=== PATIENT | female | born 1960 | race Caucasian/White ===

== ENCOUNTER → 2020-02-19 | Outpatient (CLI) | payer OTHER ==
--- NOTE | 2020-02-19 14:56 | Diagnostic Imaging Report ---
INDICATION: Shoulder pain. Weakness. COMPARISON: None. FINDINGS: Three views of the left shoulder were obtained. There is no fracture, dislocation, or other acute bony abnormality identified. The soft tissues appear unremarkable. No radiopaque foreign bodies identified. The visualized portions of the left lung are clear. IMPRESSION: No acute fractures or dislocations of the left shoulder. Dictated by: Dictated on workstation # [id number]
== END ==
LOC: RAD 13:56
PROVIDERS: ATTEND Surgery
DX: M25.512 Pain in left shoulder (principal); R53.1 Weakness
CPT/HCPCS: 73030

== ENCOUNTER → 2020-05-11 | Outpatient (CLI) | payer OTHER | LOC: RAD 13:00 | PROVIDERS: ATTEND Nurse Practitioner Family | DX: Z12.31 Encounter for screening mammogram for malignant neoplasm of breast (principal) | CPT/HCPCS: 77063; 77067 ==

== ENCOUNTER → 2020-05-25 | Outpatient (CLI) | payer OTHER ==
--- NOTE | 2020-05-25 16:23 | Diagnostic Imaging Report ---
INDICATION: Left chest wall mass. TECHNIQUE: Sonographic interrogation of the area of palpable abnormality in the left chest wall was performed. FINDINGS: There is a smoothly marginated homogeneous solid-appearing mass measuring 6.6 x 6.8 x 2.7 cm. This has the appearance sonographically of a lipoma. No significant internal vascularity is seen. IMPRESSION: Probable lipoma in the left chest wall at the area of palpable abnormality. Continued clinical followup to confirm stability is recommended. Dictated by: Dictated on workstation # [id number]
== END ==
LOC: RAD 13:10
PROVIDERS: ATTEND Family Medicine
DX: R22.2 Localized swelling, mass and lump, trunk (principal)
CPT/HCPCS: 76642

== ENCOUNTER 2020-06-07 05:28 | Outpatient (RCR) | payer OTHER ==
[~2020-06-07] VITALS: Ht 167.6 cm; Wt 123.0 kg
[~2020-06-07 05:28] MED LIST: LEVO100C4 PO
[2020-06-09] MEDS ORDERED: PANT40TA2 PO (12:46)
[2020-06-09] MEDS ORDERED: SUCR1TAB36 PO (14:11)
== END 2020-06-08 09:32 | disposition home or self-care (01) ==
LOC: PREOP 05:28
PROVIDERS: ATTEND Surgery
DX: Z01.812 Encounter for preprocedural laboratory examination (principal); K92.1 Melena; R10.31 Right lower quadrant pain; R13.10 Dysphagia, unspecified; Z20.822 Contact with and (suspected) exposure to COVID-19
CPT/HCPCS: 87635

== ENCOUNTER 2020-06-09 11:40 | Day surgery (SDC) | payer OTHER ==
[~2020-06-09] VITALS: Ht 167.6 cm; Wt 123.0 kg
[~2020-06-09 11:40] MED LIST changes: +LACTATED RINGERS 1,000 ML IV ONE
[2020-06-09] MEDS ORDERED: LACTATED RINGERS 1,000 ML IV STA (11:48)
[2020-06-09] MEDS ORDERED: HURRICAINE EXT TUBE (BENZOCAINE) XX PRN (12:00)
[2020-06-09] MEDS ORDERED: LIDOCAINE JELLY 2% 6 ML SYRINGE MM PRN (12:00)
[2020-06-09] MEDS ORDERED: LIDOCAINE JELLY 2% 6 ML SYRINGE ONE (12:11)
[2020-06-09] MEDS ORDERED: PROPOFOL INJECTION 50 ML IV ONE ×2 (12:25→13:05)
[2020-06-09] MEDS ORDERED: MIDAZOLAM 2 MG/2 ML (VERSED) VIAL ONE (12:26)
[2020-06-09] MEDS ORDERED: ONDANSETRON 4 MG/2 ML (SDV) Z0FRAN IVP PRN (12:45)
[2020-06-09] MEDS ORDERED: ACETAMINOPHEN 325 MG TABLET PO PRN (12:45)
[2020-06-09] MEDS ORDERED: morphine INJ 10 MG/ML 1ML (SYR OR VIAL) IVP PRN ×2 (12:45)
--- NOTE | 2020-06-09 12:45 | Progress Note-Pre Operative ---
Pre-Operative Progress Note H&P Reviewed The H&P was reviewed, patient examined and no changes noted. Date Seen by Provider: Jun 09, 2020 Time Seen by Provider: 12:00 Date H&P Reviewed: Jun 09, 2020 Time H&P Reviewed: 12:00 Pre-Operative Diagnosis: GERD, dysphagia, screening ADELA RAMIREZ MD Jun 09, 2020 12:45
[2020-06-09] MEDS ORDERED: PANT40TA2 PO (12:46)
--- NOTE | 2020-06-09 12:47 | Discharge Inst-Surgical ---
D/C Lap Instructions-KIDO New, Converted, or Re-Newed RX: RX on Chart Follow Up Activity as tolerated High Fiber Diet 25g or more per day Avoid Alcohol, Caffeine, Spicy [place] and Acid foods. Drink 64 fluid oz or more of fluids per day. Symptoms to Report: Fever over 101 degree F, Nausea/Vomiting If any problems/questions: Contact your physician or go to Emergency Room ADELA RAMIREZ MD Jun 09, 2020 12:47
[2020-06-09 13:35] VITALS: BP 112/56
--- NOTE | 2020-06-09 13:35 | Anesthesia-General Post-Op ---
MAC Patient Condition Mental Status/LOC: Same as Preop Cardiovascular: Satisfactory Nausea/Vomiting: Absent Respiratory: Satisfactory Pain: Controlled Complications: Absent Post Op Complications Complications None Follow Up Care/Instructions Patient Instructions None needed. Anesthesiology Discharge Order Discharge Order Patient is doing well, no complaints, stable vital signs, no apparent adverse anesthesia problems. No complications reported per nursing. JEFE WALKER CRNA Jun 09, 2020 13:35
[2020-06-09 13:40] VITALS: BP 111/57
[2020-06-09 13:45] VITALS: BP 125/76
[2020-06-09 13:50] VITALS: BP 114/68
[2020-06-09] MEDS ORDERED: SUCR1TAB36 PO (14:11)
[2020-06-09 14:20] VITALS: BP 143/79
[2020-06-09 14:35] VITALS: BP 143/79
--- NOTE | 2020-06-09 14:51 | Progress Note-Post Operative ---
Post-Operative Progess Note Surgeon (s)/Hop Farmer (s) Surgeon ADELA RAMIREZ MD Hop Farmer: none Pre-Operative Diagnosis GERD, dysphagia, screening Post-Operative Diagnosis reflux esophagitis(stage 3) with esophageal ulceration and mild distal esophageal stricture, small HH(2.5cm), moderate gastritis. mild chronic stage 2 ext and int hemorrhoids. Procedure & Operative Findings Date of Procedure 06/09/20 Procedure Performed/Findings EGD with bx and balloon dilatation. colonoscopy Anesthesia Type mac Estimated Blood Loss Estimated blood loss (mL): minimal Specimens/Packing Specimens Removed ge jxn, antrum ADELA RAMIREZ MD Jun 09, 2020 14:51
--- NOTE | 2020-06-09 18:30 | OPERATIVE REPORT ---
DATE OF SERVICE: 06/09/2020 ATTENDING PRIMARY CARE PHYSICIAN: Kita Gonzales MD PREOPERATIVE DIAGNOSES: Gastroesophageal reflux disease, dysphagia, right lower abdominal quadrant pain. POSTOPERATIVE DIAGNOSES: Reflux esophagitis stage III with esophageal ulceration and mild distal esophageal stricture, small to moderate size hiatal hernia approximately 2.5 cm in size, moderate gastritis. No distal obstructions. Chronic stage II external and internal hemorrhoids. PROCEDURE: EGD with biopsy and balloon dilatation and colonoscopy. SURGEON: Adela Ramirez MD ANESTHESIA: Monitored anesthesia care. ESTIMATED BLOOD LOSS: Minimal. FINDINGS: Same as postoperative diagnoses. DISPOSITION: The patient tolerated the procedure well. INDICATIONS: The patient is a 60-year-old female who has had issues with gastroesophageal reflux disease; however, this has progressed to dysphagia. She states that she feels substernal pressure sensation after food bolus and then would regurgitate frequently. She also has had pain in the right lower abdominal quadrant on an intermittent basis, which is not new. Her last colonoscopy was in 2012. She does not report any red blood per rectum nor any dark tarry stools and also does not report any family history of colon cancer. DESCRIPTION OF PROCEDURE: The patient was brought to the endoscopy suite, laid in the left lateral decubitus position with the head slightly elevated. After adequate IV pain and sedative medications and monitored anesthesia care, the mouthpiece was applied. The endoscope was placed in the mouth, visualizing the pharynx and hypopharyngeal region. Vocal cords, epiglottis and vallecula identified and appeared to be normal. The endoscope was then gently intubated into the esophageal opening and esophagus insufflated. The endoscope was then advanced through the first, second and third portion of esophagus at the level of the distal esophagus where small esophageal ulcerations with overlying fibrin clot, no active bleeding. A reflux esophagitis stage III was also identified. There was also a mild distal esophageal stricture. A biopsy was taken of the GE junction with forceps with visualization of good hemostasis. The endoscope was then advanced into the stomach and endoscope retroflexed, visualizing a small to moderate size hiatal hernia approximately 2.5 cm in size. There was a moderate severity gastritis. No formal ulcerations, polyps, or any neoplasms. A biopsy was taken of the antrum to rule out H. pylori with visualization of good hemostasis. The endoscope was then advanced to the pylorus and the first and second portion of the duodenum, which appeared normal with no distal obstructions. We then proceeded with balloon dilatation of the distal esophageal stricture and the balloon was placed in the stomach and pulled back to the area of the stricture. The balloon was then insufflated to 2, then 4, then 6 atmospheres of pressure or 20 mm in luminal diameter with moderate resistance and left this in place for approximately 60 seconds. The balloon was then desufflated and removed with visualization of good hemostasis as well as no mucosal tears. The endoscope was then slowly withdrawn while taking a second look and suctioning of residual air with no additional findings. We then proceeded with colonoscopy portion of the procedure and a digital rectal examination was performed, which revealed chronic stage II external and internal hemorrhoids, not actively edematous nor inflamed and no bleeding. Normal sphincter tone was felt and there were no palpable masses. The endoscope was then intubated and anus and rectum gently insufflated. The endoscope was then advanced through the valves of Velarde of the rectum with no polyps or any neoplasms identified. The endoscope was then advanced through the sigmoid colon where no diverticulosis identified. Endoscope was then advanced to the remainder of the descending, transverse and ascending colon to the cecum. These segments were normal. There were no neoplasms as well as no mucosal inflammatory changes. The endoscope was then slowly withdrawn while taking a second look and suctioning of residual air with no additional findings. The patient tolerated the procedure well. We will recommend the necessary lifestyle and diet accommodation including small and more frequent meals, avoidance of eating at night as well as head elevation while lying supine. She also needs to avoid caffeinated beverages, spicy, greasy and acidic foods. Any type of modality of regularly scheduled diet and exercise and weight loss will also help with her reflux type of symptoms. She states that she has had some form of allergic reactions to acid reducers; however, we are not sure exactly what the reactions or what medications she had a reaction to. For now, we will start her on Carafate 1 gram q.i.d. for the next 2 weeks, then on a p.r.n. basis. From a standpoint of her colon and the intermittent episodes of right lower abdominal quadrant pain, this may be due to constipation. We will recommend the incorporation of high-fiber diet with at least 25 grams of fiber daily as well as significant amounts of water to promote soft stools on a daily basis. Job ID: [id number] DocumentID: [id number] Dictated Date: 06/09/2020 13:44:00 Inventory And Pricing Associate Date: 06/09/2020 18:29:58 Dictated By: ADELA RAMIREZ MD
== END 2020-06-09 14:35 | disposition home or self-care (01) ==
LOC: ENDO 11:40
PROVIDERS: ATTEND Surgery
DX: K29.50 Unspecified chronic gastritis without bleeding (principal); K21.00 Gastro-esophageal reflux disease with esophagitis, without bleeding; K22.2 Esophageal obstruction; K44.9 Diaphragmatic hernia without obstruction or gangrene; K64.1 Second degree hemorrhoids; K22.10 Ulcer of esophagus without bleeding; E66.01 Morbid (severe) obesity due to excess calories; Z68.41 Body mass index [BMI] 40.0-44.9, adult; Z79.899 Other long term (current) drug therapy; Z88.8 Allergy status to other drugs, medicaments and biological substances; Z90.710 Acquired absence of both cervix and uterus; Z87.891 Personal history of nicotine dependence; Z83.3 Family history of diabetes mellitus; Z80.3 Family history of malignant neoplasm of breast
CPT/HCPCS: 88305

== ENCOUNTER 2020-06-21 05:35 | Outpatient (CLI) | payer OTHER ==
[~2020-06-21] VITALS: Ht 167.7 cm; Wt 123.0 kg
[~2020-06-21 05:35] MED LIST changes: -LACTATED RINGERS 1,000 ML IV ONE; +PANT40TA2 PO; +SUCR1TAB36 PO
== END 2020-06-21 16:43 | disposition home or self-care (01) ==
LOC: PREOP 05:35
PROVIDERS: ATTEND Surgery
DX: Z01.818 Encounter for other preprocedural examination (principal)

== ENCOUNTER 2020-06-24 13:46 | Day surgery (SDC) | payer OTHER ==
[2020-06-24] VITALS (9 sets, daily range): BP systolic 142–158; BP diastolic 63–80
[~2020-06-24] VITALS: Ht 167 cm; Wt 123.0 kg
[~2020-06-24 13:46] MED LIST changes: +LIDOCAINE/EPI 1%-1:200,000 (XYLOCAINE) 10 ML VIAL ONE
[2020-06-24] MEDS ORDERED: LACTATED RINGERS 1,000 ML IV PRN (14:00)
[2020-06-24] MEDS ORDERED: ceFAZolin 2 GM IV Premixed 50 ML IV ONE (14:00)
--- NOTE | 2020-06-24 14:25 | Progress Note-Pre Operative ---
Pre-Operative Progress Note H&P Reviewed The H&P was reviewed, patient examined and no changes noted. Date Seen by Provider: June 24, 2020 Time Seen by Provider: 14:20 Date H&P Reviewed: June 24, 2020 Time H&P Reviewed: 14:15 Pre-Operative Diagnosis: Symptomatic lipoma left upper breast GONSALO MCGARRY APRN June 24, 2020 14:25
[2020-06-24] MEDS ORDERED: ACHD5005 PO (14:27)
--- NOTE | 2020-06-24 14:27 | Discharge Inst-Surgical ---
D/C Lap Instructions-KIDO Reconcile Patient Problems Problems Reviewed?: Yes New, Converted, or Re-Newed RX: RX on Chart Follow Up Appt in 2 weeks Activity as tolerated No driving for 24 hours No driving while on pain medications Incentive Spirometry use every 2 hours while awake Regular Diet Symptoms to Report: Fever over 101 degree F, Nausea/Vomiting Infection Signs and Symptoms to report: Increased redness, Foul odor of wound, Increased drainage Bathing instructions: May shower Operative Area Clean/Dry; Keep incision clean/dry If any problems/questions: Contact your physician or go to Emergency Room GONSALO MCGARRY APRN June 24, 2020 14:27
[2020-06-24] MEDS ORDERED: HYDROcodone/APAP 5 MG/325 MG (LORTAB) TAB PO ONE (14:30)
[2020-06-24] MEDS ORDERED: ONDANSETRON 4 MG/2 ML (SDV) Z0FRAN IVP PRN (14:30)
[2020-06-24] MEDS ORDERED: morphine INJ 10 MG/ML 1ML (SYR OR VIAL) IVP PRN (14:30)
[2020-06-24] MEDS ORDERED: ACETAMINOPHEN 325 MG TABLET PO PRN (14:30)
[2020-06-24] MEDS ORDERED: ONDANSETRON 4 MG/2 ML (SDV) Z0FRAN ONE ×2 (15:34→16:27)
[2020-06-24] MEDS ORDERED: proPOfol 200 MG/20 ML (DIPRIVAN) VIAL IV ONE (15:34)
[2020-06-24] MEDS ORDERED: LIDOCAINE PF 2% 5 ML (XYLOCAINE) VIAL ONE (15:34)
[2020-06-24] MEDS ORDERED: MIDAZOLAM 2 MG/2 ML (VERSED) VIAL ONE (16:12)
[2020-06-24] MEDS ORDERED: fentaNYL INJ 100 MCG/2 ML AMP ONE (16:26)
[2020-06-24] MEDS ORDERED: PROPOFOL INJECTION 50 ML IV ONE (16:27)
--- NOTE | 2020-06-24 16:42 | Progress Note-Post Operative ---
Post-Operative Progess Note Surgeon (s)/Bicycle I Assembler (s) Surgeon ADELA RAMIREZ MD Bicycle I Assembler: irina allen APRN Pre-Operative Diagnosis Symptomatic lipoma left upper breast Post-Operative Diagnosis subfascial left breast lipoma 9x9cm Procedure & Operative Findings Date of Procedure 06/24/20 Procedure Performed/Findings excision subfascial lipoma left breast 9x9cm with intermediate flap closure. Anesthesia Type general LMA with local Estimated Blood Loss Estimated blood loss (mL): minimal Specimens/Packing Specimens Removed left breast lipoma ADELA RAMIREZ MD June 24, 2020 16:42
[2020-06-24] MEDS ORDERED: SEVOFLURANE (ULTANE) 15 ML INHAL SOLN ONE (16:51)
--- NOTE | 2020-06-24 22:05 | OPERATIVE REPORT ---
DATE OF SERVICE: 06/24/2020 ATTENDING PRIMARY CARE PHYSICIAN: Dr. Kita Gonzales. PREOPERATIVE DIAGNOSES: Symptomatic lipoma, left breast and chest confirmed by mammography as well as ultrasound. POSTOPERATIVE DIAGNOSES: Symptomatic lipoma, left breast and chest confirmed by mammography as well as ultrasound with the excised measurements, 9 x 9 cm. PROCEDURE: Excision subfascial lipoma, 9 x 9 cm in size. SURGEON: Adela Ramirez MD. BRIDAL STYLIST SALES CONSULTANT: Kenton Castillo APRN. ANESTHESIA: General laryngeal mask airway with local. ESTIMATED BLOOD LOSS: Minimal. FINDINGS: Well circumscribed fatty tissue consistent with a benign lipoma. DISPOSITION: The patient tolerated the procedure well. INDICATIONS: The patient is a 60-year-old female who states that she noticed a lump in the left upper outer portion of her breast as well as chest wall, which grew larger in size over 5 to 6 years. Over time, this lesion has become significantly painful, especially upon certain motions of her left upper extremity. She does not report any redness or swelling as well as no drainage. She has had multiple mammographies as well as ultrasounds in the past, which were all consistent with a benign lipoma. DESCRIPTION OF PROCEDURE: The patient was brought to the operating room, laid supine on the table. After adequate IV pain and sedative medications and general laryngeal mask airway intubation, the chest and neck were prepped and draped in standard surgical fashion. A 0.5% Marcaine with epinephrine was then used to anesthetize overlying skin. A skin incision along the glebellar lines was then made using a 15 blade. The subcutaneous tissue was then dissected down as was the fascia. The lipoma was then identified, which was well circumscribed and subfascial. This was then completely dissected out using blunt dissection as well as electrocautery with visualization of good hemostasis. The excised diameter was 9 x 9 cm. Good hemostasis was observed, and the fascia was then reapproximated using 3-0 Vicryl interrupted sutures. Subcutaneous tissue was then reapproximated with the same suture and the skin was closed using 4-0 Monocryl running subcuticular suture. Wound was then cleaned and covered with Dermabond. The patient tolerated the procedure well. We will start IV normal pain medication as well as a clear liquid diet. When she is tolerating clears, has good pain control with oral pain medications, ambulating well, we will discharge her home. She will be instructed to wear supportive garments to the region for the next two weeks as well. Job ID: [id number] DocumentID: [id number] Dictated Date: 06/24/2020 16:46:51 Sinker Puller Date: 06/24/2020 22:04:28 Dictated By: ADELA RAMIREZ MD MTDD
--- NOTE | 2020-07-05 11:40 | Anesthesia-General Post-Op ---
General Significant Intra-Op Events Notes post date entry from 06-24-20 at 1730 Patient Condition Mental Status/LOC: Same as Preop Cardiovascular: Satisfactory Nausea/Vomiting: Absent Respiratory: Satisfactory Pain: Controlled Complications: Absent Post Op Complications Complications None Follow Up Care/Instructions Patient Instructions None needed. Anesthesia/Patient Condition Patient Condition Patient is doing well, no complaints, stable vital signs, no apparent adverse anesthesia problems. No complications reported per nursing. LARRY LARSEN CRNA July 05, 2020 11:40
== END 2020-06-24 18:30 | disposition home or self-care (01) ==
LOC: SDC 13:46
PROVIDERS: ATTEND Surgery
DX: D17.79 Benign lipomatous neoplasm of other sites (principal); E03.9 Hypothyroidism, unspecified; K21.9 Gastro-esophageal reflux disease without esophagitis; Z79.899 Other long term (current) drug therapy; Z79.890 Hormone replacement therapy; Z87.891 Personal history of nicotine dependence
CPT/HCPCS: 87081; 88304

== ENCOUNTER → 2021-06-01 | Outpatient (CLI) | payer OTHER ==
[~2021-06-01] MED LIST changes: +ACHD5005 PO; -LIDOCAINE/EPI 1%-1:200,000 (XYLOCAINE) 10 ML VIAL ONE
--- NOTE | 2021-06-02 12:20 | Diagnostic Imaging Report ---
INDICATION: Routine screening. Comparison is made with prior mammogram from 05/11/2020 and 05/21/2018. 2-D and 3-D bilateral screening mammography was performed with CAD. CAD is utilized. The current study was also evaluated with a Computer Aided Detection (CAD) system. Scattered fibroglandular densities are identified bilaterally. The parenchymal pattern is stable. No mass or malignant-appearing microcalcifications are seen. Axillae are unremarkable. IMPRESSION: BI-RADS Category 1 No mammographic features suspicious for malignancy are identified. ACR BI-RADS Category 1: Negative. Result letter will be mailed to the patient. Note: At least 10% of breast cancer is not imaged by mammography. Dictated by: Dictated on workstation # [id number]
== END ==
LOC: RAD 15:15
PROVIDERS: ATTEND Nurse Practitioner Family
DX: Z12.31 Encounter for screening mammogram for malignant neoplasm of breast (principal)
CPT/HCPCS: 77063; 77067

== ENCOUNTER 2022-02-11 08:09 | Emergency (ER) | payer BC ==
[~2022-02-11] VITALS: Ht 167 cm; Wt 110.0 kg
[2022-02-11 08:15] VITALS: BP 160/95
--- NOTE | 2022-02-11 09:08 | ED Hip Pain/Injury ---
General Chief Complaint: Hip/Pelvic Problems Stated Complaint: L HIP PAIN Nursing Triage Note: TO ROOM 06 WITH COMPLAINTS OF LEFT HIP PAIN THAT RADIATES DOWN LEG STARTING ON SUNDAY. Source: patient Exam Limitations: no limitations (OBI RIVERA) History of Present Illness Date Seen by Provider: Feb 11, 2022 Time Seen by Provider: 08:44 Initial Comments Patient is a 61yo F who presents with left hip pain since [id number]. PMHx includes hypothyroidism, arthritis, and "deteriorating spinal disk". Patient initially felt a pop in her left hip 2 weeks ago then had pain starting at 5/10 progressing to 10/10 pain today which is dull and aching. Patient is normally independent in ambulation and works at [employer]. Pain has caused her to be limited in ambulation, requiring her daughter to help her out of bed this morning and assistance with ambulation from vehicle to ED room this morning. Patient endorses weakness and numbness of her left leg that extends down to the left foot. Pain is stabilized when patient is at rest and not moving her thigh. Has not taken any medications for pain today. Denies recent falls or trauma lower extremities, also no previous surgical history or traumatic events to the lower extremity. Endorses low back pain localized to the left side. Denies bowel incontinence, urinary incontinence, or groin numbness. Timing/Duration: getting worse (Worsening L Hip pain since feeling a pop 2 weeks ago in the left hip) Severity: severe Location: hip (L) Method of Injury: unknown Modifying Factors: Improves With Immobilization; Worse With Movement; Improves With Rest Associated Symptoms: trouble walking, other (Low back pain, left leg numbnes and weakness.) (OBI RIVERA) Allergies and Home Medications Allergies Uncoded Allergies: STERIODS (Adverse Reaction, Mild, 06/03/20) Patient Home Medication List Home Medication List Reviewed: Yes (OBI RIVERA) Discontinued Medications Hydrocodone/Acetaminophen (Hydrocodone-Acetamin 5-325 mg) 1 Each Tablet, 1-2 TAB PO Q4H PRN for PAIN-MODERATE (5-7) Discontinued Reason: No Longer Taking Prescribed by: GONSALO MCGARRY on 06/24/20 9798 Last Action: Discontinued Levothyroxine Sodium (Levothyroxine) 100 Mcg Capsule, 100 MCG PO DAILY, (Reported) Discontinued Reason: No Longer Taking Entered as Reported by: ADELA ALVARADO on 06/03/20 0983 Last Action: Discontinued Sucralfate (Carafate) 1 Gm Tablet, 1 GM PO QID Discontinued Reason: No Longer Taking Prescribed by: ADALBERTO SKINNER on 06/09/20 1411 Last Action: Discontinued Review of Systems Constitutional: no symptoms reported EENTM: no symptoms reported Respiratory: no symptoms reported Cardiovascular: no symptoms reported Gastrointestinal: no symptoms reported Genitourinary: no symptoms reported Musculoskeletal: back pain (Low back pain localized to the left side), joint pain (Left hip pain), muscle cramps (Left leg) Skin: no symptoms reported Psychiatric/Neurological: No Symptoms Reported, Numbness (Left thigh down to foot), Weakness (Left leg) (OBI RIVERA) Past Hzoxrgd-Wpdoel-Jjxkly Hx Patient Social History Tobacco Use?: Yes Smokeless Tobacco Frequency: Former User (Cessation in 2008, Previous 1PPD smoker) Substance use?: No Alcohol Use?: No (OBI RIVERA) Seasonal Allergies Seasonal Allergies: Yes (OBI RIVERA) Past Medical History Surgeries: Yes Section, Hysterectomy, Tonsillectomy Respiratory: No Currently Using CPAP: No Currently Using BIPAP: No Cardiac: No Neurological: No BOBBIN HAULER History: Hysterectomy Genitourinary: No Gastrointestinal: Yes (HEPATITIS ANTIBODIES ) Gastroesophageal Reflux, Hiatal Hernia, Ulcer Musculoskeletal: No Endocrine: Yes Hypothyroidsim HEENT: No Cancer: No Psychosocial: No Integumentary: No Blood Disorders: No (OBI RIVERA) Physical Exam Vital Signs Vital Signs - First Documented 02/11/22 08:15 Temp 36.1 Pulse 80 Resp 16 B/P (MAP) 160/95 (116) Pulse Ox 97 O2 Delivery Room Air (BRAXTON AKBAR MD) Vital Signs Capillary Refill : Less Than 3 Seconds (OBI RIVERA) Height, Weight, BMI Height: '" Weight: lbs. oz. kg; 39.00 BMI Method: General Appearance: No Apparent Distress (Patient laying supine in bed in no acute distress), WD/WN HEENT: PERRL/EOMI, TMs Normal, Normal ENT Inspection, Pharynx Normal Neck: Full Range of Motion, Normal Inspection, Non Tender, Supple Cardiovascular: Regular Rate, Rhythm, No Edema, No Murmur, Normal Peripheral Pulses Respiratory: Chest Non Tender, Lungs Clear, Normal Breath Sounds, No Accessory Muscle Use, No Respiratory Distress Peripheral Pulses: 2+ Dorsalis Pedis (R), 2+ Left Dors-Pedis (L), 2+ Radial Pulses (R), 2+ Radial Pulses (L) Gastrointestinal: Normal Bowel Sounds, No Organomegaly, No Pulsatile Mass, Non Tender, Soft Extremity: Normal Capillary Refill, Other (Point tenderness with palpation of left piriformis muscle. Bilateral lower extremity 5/5 strength and normal se nsation. No tenderness on greater trochanter with palpation or hipjoint with external and internal rotation of thigh.) Neurologic/Psychiatric: Alert, Oriented x3, No Motor/Sensory Deficits, Normal Mood/Affect Skin: Normal Color, Warm/Dry Lymphatic: No Adenopathy (OBI RIVERA) Progress/Results/Core Measures Results/Orders My Orders Orders - BRAXTON AKBAR MD Ketorolac Injection (Toradol Injection) (02/11/22 09:30) Orphenadrine Inj (Ed Only) (Norflex Inje (02/11/22 09:30) Gabapentin Capsule/Tablet (Neurontin Cap (02/11/22 10:30) (BRAXTON AKBAR MD) Medications Given in ED Current Medications Medications Dose Ordered Sig/Omar Route Start Time Stop Time Status Last Admin Dose Admin Gabapentin 300 mg ONCE ONCE PO 02/11/22 10:30 02/11/22 10:31 DC 02/11/22 10:28 300 MG Ketorolac Tromethamine 30 mg ONCE ONCE IM 02/11/22 09:30 02/11/22 09:31 DC 02/11/22 09:31 30 MG Orphenadrine Citrate 60 mg ONCE ONCE IM 02/11/22 09:30 02/11/22 09:31 DC 02/11/22 09:32 60 MG (BRAXTON AKBAR MD) Vital Signs/I&O 02/11/22 08:15 Temp 36.1 Pulse 80 Resp 16 B/P (MAP) 160/95 (116) Pulse Ox 97 O2 Delivery Room Air (BRAXTON AKBAR MD) Blood Pressure Mean: 116 Progress Progress Note : Time: 10:21 Progress Note Patient has been interviewed and examined by me personally along with medical students. She received Toradol and Norflex but reports no significant improvement. A trial treatment of gabapentin will be offered. (BRAXTON AKBAR MD) Departure Impression Primary Impression: Radicular pain Disposition: 01 HOME, SELF-CARE Condition: Improved Departure-Patient Inst. Decision time for Depature: 11:28 (BRAXTON AKBAR MD) Referrals: CINDY CURTIS MD (PCP/Family) Primary Care Physician Patient Instructions: Radiculopathy Add. Discharge Instructions: Your pain is likely coming from nerve compression in your lower back or the nerves exiting your lower back. You may treat with ibuprofen up to 600 mg every 6 hours as needed for pain. Take ibuprofen with food or milk to avoid stomach upset. Ibuprofen should not be used consistently for long-term treatment of pain but may be used for more acute treatment of pain. For pain not controlled with ibuprofen, use hydrocodone and/or gabapentin as prescribed. Both of these medications may cause drowsiness so use with caution. Avoid using them together if possible. Hydrocodone may also cause constipation, so you may wish to take a stool softener such as Colace on days you take hydrocodone. You may use a cane or walker to help provide support when ambulating. Return to the emergency room if you develop symptoms of true weakness in your leg, loss of feeling, numbness in your groin, or problems controlling bowel or bladder function. The symptoms may represent a serious problem with the spine requiring emergent evaluation. If you seek emergency room care for these symptoms outside of business hours, consider going to a tertiary care facility where MRI may be more readily available such as the [facility]. Follow-up with your primary care provider soon as possible. Further treatment or evaluation may be discussed at that time which may include other medications, physical therapy, MRI of your lower back, etc. All discharge instructions reviewed with patient and/or family. Voiced understanding. Scripts Gabapentin (Neurontin) 300 Mg Capsule 300 MG PO BID PRN for PAIN-BREAKTHROUGH, #10 CAP Prov: BRAXTON AKBAR MD 02/11/22 Hydrocodone/Acetaminophen (Hydrocodone-Acetamin 5-325 mg) 5 Mg-325 Mg Tablet 0.5-1 TAB PO Q6H PRN for PAIN-BREAKTHROUGH, #15 TAB Prov: BRAXTON AKBAR MD 02/11/22 OBI RIVERA Feb 11, 2022 09:08 BRAXTON AKBAR MD Feb 11, 2022 10:22
[2022-02-11] MEDS ORDERED: ORPHENADRINE 60 MG/2 ML (NORFLEX) AMP (ED ONLY) IM ONE (09:30)
[2022-02-11] MEDS ORDERED: KETOROLAC 30 MG/ML VIAL IM ONE (09:30)
[2022-02-11] MEDS ORDERED: GABAPENTIN 300 MG (NEURONTIN) CAP PO ONE (10:30)
[2022-02-11] MEDS ORDERED: HYDROcodone/APAP 5 MG/325 MG (LORTAB) TAB PO ONE (11:30)
[2022-02-11] MEDS ORDERED: GABA300C PO (11:32)
[2022-02-11] MEDS ORDERED: ACHD5005 PO (11:32)
== END 2022-02-11 11:43 | disposition home or self-care (01) ==
LOC: EDUNIT# 08:09 → ER 08:10
DX: M54.10 Radiculopathy, site unspecified (principal); Z87.891 Personal history of nicotine dependence; Z28.310 Unvaccinated for COVID-19
CPT/HCPCS: 96372; 99281

== ENCOUNTER → 2022-02-24 | Outpatient (CLI) | payer BC ==
[~2022-02-24] MED LIST changes: +GABA300C PO
--- NOTE | 2022-02-24 17:24 | Diagnostic Imaging Report ---
EXAMINATION: Left hip unilateral 2 or 3 views (w/pelvis when done) HISTORY: Low back pain and hip pain EXAMINATION: Left hip 02/24/2022. Two views of the hip FINDINGS: There is no evidence for an acute fracture or dislocation. The joint spaces are well maintained. There is no significant soft tissue swelling. IMPRESSION: No acute process. Dictated on workstation # [id number]
--- NOTE | 2022-02-24 17:35 | Diagnostic Imaging Report ---
EXAMINATION: Lumbosacral spine 2 or 3 views HISTORY: Back pain. EXAMINATION: Lumbar spine 02/24/2022. FINDINGS: 3 views of the lumbar spine. There is normal height and alignment of the vertebral bodies. No acute fractures or subluxations appreciated. Minimal intervertebral space narrowing noted at L4-L5 and L5-S1. Facet hypertrophy at both levels also present. IMPRESSION: 1. Degenerative findings in the lower lumbar spine. No acute osseous abnormality./ Dictated on workstation # [id number]
== END ==
LOC: RAD 10:16
PROVIDERS: ATTEND Nurse Practitioner Family
DX: M47.816 Spondylosis without myelopathy or radiculopathy, lumbar region (principal)
CPT/HCPCS: 72100; 73502